=== PATIENT | male | born 1955 | race Caucasian/White ===

== ENCOUNTER 2023-05-23 07:14 | Day surgery (SDC) | payer MEDICARE, OTHER ==
[2023-05-22 11:00] LABS: ALBUMIN 3.7 G/DL (3.4-5.0); ANION GAP 8 (8-16); BASOPHILS # (AUTO) 0.1 X10'3 (0-0.2); BLOOD UREA NITROGEN 13 MG/DL (7-18); BUN/CREATININE RATIO 13.4 (10.0-20.0); CALCIUM 8.4 MG/DL (8.5-10.1); CHLORIDE 107 MMOL/L (99-107); CREATININE 0.97 MG/DL (0.60-1.10); EOSINOPHILS # (AUTO) 0.6 X10'3 (0-0.9); EOSINOPHILS % (AUTO) 8.2 % (0-6); GLUCOSE 118 MG/DL (70-104); HEMATOCRIT 42.9 % (42.0-52.0); HEMOGLOBIN 14.4 g/dl (14.0-17.9); LYMPHOCYTES # (AUTO) 2.2 X10'3 (1.1-4.8); LYMPHOCYTES % (AUTO) 31.9 % (21-51); MEAN CORPUSCULAR HEMOGLOBIN 29.9 PG (27.0-31.0); MEAN CORPUSCULAR HGB CONC 33.6 g/dL (33.0-36.5); MEAN CORPUSCULAR VOLUME 89.1 FL (78-98); MEAN PLATELET VOLUME 9.5 FL (7.4-10.4); MONOCYTES # (AUTO) 0.9 X10'3 (0-0.9); MONOCYTES % (AUTO) 12.3 % (2-12); NEUTROPHILS # (AUTO) 3.2 X10'3 (1.8-7.7); NEUTROPHILS % (AUTO) 45.6 % (42-75); PLATELET COUNT 153 X10'3 (140-440); POTASSIUM 4.6 MMOL/L (3.5-5.1); RED BLOOD COUNT 4.82 X10'6 (4.70-6.10); RED CELL DISTRIBUTION WIDTH 15.5 % (11.5-14.5); SODIUM 143 MMOL/L (135-145); WHITE BLOOD COUNT 6.9 X10'3 (4.5-11.0); eGFR 77 ML/MIN
[2023-05-22 11:01] LABS: INR 1.1 INR; PROTHROMBIN TIME 11.5 SECONDS (9.0-12.0)
[~2023-05-23] VITALS: Ht 185.4 cm; Wt 101.2 kg
[2023-05-23] VITALS (12 sets, daily range): BP systolic 101–153; BP diastolic 59–116; PULSE 59–108; RESP 16–18; TEMP 97.9; O2SAT 95–98
[2023-05-23] MEDS ORDERED: diphenhydrAMINE 25mg capsule PO ONE (07:45)
[2023-05-23] MEDS ORDERED: LORazepam 0.5 MG tablet PO ONE (07:45)
[2023-05-23] MEDS ORDERED: atropine 0.1mg/ml 10ml syringe IV ONE (07:45)
[2023-05-23] MEDS ORDERED: amiodarone 150mg/dext, iso-os 100 ML IV ONE (07:45)
[2023-05-23] MEDS ORDERED: METO-384 PO (07:47)
[2023-05-23] MEDS ORDERED: TIMO5DRO44 (07:47)
[2023-05-23] MEDS ORDERED: FLEC100T35 PO (07:47)
[2023-05-23] MEDS ORDERED: ROSU20TA73 PO (07:47)
[2023-05-23] MEDS ORDERED: APIX5TAB3 PO (07:47)
[2023-05-23] MEDS: normal saline 1000ml 1,000 ML IV SCH (08:19)
[2023-05-23] MEDS: enoxaparin 100mg/ml syringe SUBCUT ONE (08:20)
[2023-05-23] MEDS: MIDAZolam 1mg/ml 10ml vial IV ONE (09:17)
[2023-05-23] MEDS: morphine 10mg/ml inj. IV ONE (09:17)
== END 2023-05-23 10:10 | disposition home or self-care (01) ==
LOC: SSTAY O 07:14
PROVIDERS: ATTEND Internal Medicine Cardiovascular Disease
DX: I48.0 Paroxysmal atrial fibrillation (principal); I10 Essential (primary) hypertension; E78.5 Hyperlipidemia, unspecified; G47.30 Sleep apnea, unspecified; I27.29 Other secondary pulmonary hypertension; I34.0 Nonrheumatic mitral (valve) insufficiency; Z79.899 Other long term (current) drug therapy; Z79.01 Long term (current) use of anticoagulants; Z80.9 Family history of malignant neoplasm, unspecified
CPT/HCPCS: 36415; 80048; 85025; 85610; 92960; 93005; J1650; J2250; J2274; J7030; A4620

== ENCOUNTER 2024-12-10 07:02 | Day surgery (SDC) | payer MEDICARE ==
[2024-12-09 09:57] LABS: MEAN PLATELET VOLUME 9.9 FL (7.4-10.4)
[2024-12-09 09:58] LABS: RED CELL DISTRIBUTION WIDTH 13.8 % (11.5-14.5)
[2024-12-09 10:03] LABS: CREATININE 0.80 MG/DL (0.60-1.10); TOTAL CARBON DIOXIDE 28.2 MMOL/L (24-32); eGFR > 90 ML/MIN
[2024-12-09 10:14] LABS: INR 1.1 INR
[~2024-12-10] VITALS: Ht 182.9 cm; Wt 97.0 kg
[~2024-12-10 07:02] MED LIST: APIX5TAB3 PO; FLEC100T35 PO; METO-384 PO; ROSU20TA98 PO; TIMO5DRO44
[2024-12-10] MEDS ORDERED: morphine 10mg/ml inj. IV ONE (07:20)
[2024-12-10] MEDS ORDERED: atropine 0.1mg/ml 10ml syringe IV ONE (07:20)
[2024-12-10] MEDS ORDERED: normal saline 1000ml 1,000 ML IV SCH (07:20)
[2024-12-10] MEDS ORDERED: MIDAZolam 1mg/ml 10ml vial IV ONE (07:20)
[2024-12-10] MEDS ORDERED: amiodarone 150mg/dext, iso-os 100 ML IV ONE (07:20)
--- NOTE | 2024-12-10 07:27 | ELECTROCARDIOGRAPH REPORT ---
[facility] Test Date: 2024-12-10 Test Time: 07:25:46 Pat Name: WILLIAM STANLEY Department: [facility] Patient ID: [facility]-[id number] Room: Gender: M Qa Lead: kenji : 1955 Requested By: ANNA CHAPMAN Order Number: [id number] Reading MD: Dr. OKSANA Chapman Measurements Intervals [place] Rate: 89 P: 0 [place]: 0 QRS: 54 QRSD: 133 T: 51 QT: 433 QTc: 527 Interpretive Statements Atrial fibrillation Nonspecific intraventricular conduction delay Borderline T abnormalities, anterior leads Electronically Signed On 12-10-2024 19:06:[address] OKSANA Chapman Please click the below link to view image of tracing.
[2024-12-10] MEDS ORDERED: Prevagen PO (07:38)
[2024-12-10] MEDS ORDERED: COLC0.6T72 PO (07:38)
[2024-12-10] MEDS ORDERED: HYDR-3972 PO (07:38)
[2024-12-10 08:01] VITALS: BP 143/95; PULSE 72; RESP 16; TEMP 97; O2SAT 97
[2024-12-10] MEDS ORDERED: atropine 0.1mg/ml 10ml syringe ONE (09:12)
[2024-12-10] MEDS ORDERED: fentaNYL/PF 50MCG/1 ML 2ML syringe ONE (09:12)
[2024-12-10] MEDS ORDERED: midazolam 1 mg/ML 2ml injection ONE ×2 (09:12→09:35)
[2024-12-10] MEDS ORDERED: amiodarone 50MG/ML inj IV ONE (09:12)
[2024-12-10 10:04] VITALS: BP 106/78; PULSE 60; RESP 14; O2SAT 96
--- NOTE | 2024-12-10 10:05 | ELECTROCARDIOGRAPH REPORT ---
[facility] Test Date: 2024-12-10 Test Time: 10:02:56 Pat Name: WILLIAM STANLEY Department: [facility] Patient ID: [id number] Room: Gender: M Vp Strategy: [place] : 1955 Requested By: ANNA CHAPMAN Order Number: [id number] Reading MD: Dr. OKSANA Chapman Measurements Intervals [place] Rate: 59 P: 28 [place]: 233 QRS: 18 QRSD: 116 T: 24 QT: 468 QTc: 464 Interpretive Statements Sinus rhythm Prolonged [place] interval Nonspecific intraventricular conduction delay Electronically Signed On 12-10-2024 19:07:[address] OKSANA Chapman Please click the below link to view image of tracing.
[2024-12-10 10:15] VITALS: BP 105/73; PULSE 59; RESP 14; O2SAT 96
[2024-12-10 10:30] VITALS: BP 100/78; PULSE 59; RESP 14; O2SAT 98
[2024-12-10] MEDS: potassium Cl 20 mEq SR tablet PO ONE (10:32)
--- NOTE | 2024-12-10 13:24 | CARDIOLOGY REPORT ---
DATE OF SERVICE: 12/10/2024 DICTATING PHYSICIAN: OKSANA Plaza MD CARDIAC CATHETERIZATION INDICATION: The patient is a 69-year-old male with a history of hypertension, hyperlipidemia, sleep apnea, and paroxysmal atrial fibrillation. His AFib history goes back to 12/2022 when he presented to [facility] with AFib with RVR. Subsequently, he was started on Eliquis and converted to normal sinus rhythm. He did well until 10/2024 when he had a recurrence of AFib. He is also on flecainide increased to 150 mg p.o. q.a.m. and 50 mg q.p.m. After discussing risks, benefits, alternative options, the patient underwent electrical cardioversion. Risks, benefits, and alternative options were discussed. Informed consent obtained. PROCEDURE: Anterior and posterior patch was used. Using biphasic electrical energy 200 joules x 1, converted to normal sinus rhythm, remained in normal sinus rhythm. IMPRESSION: A 69-year-old male with paroxysmal AFib, which was persistent, converted to normal sinus rhythm. RECOMMENDATIONS: Continue Eliquis, flecainide, and metoprolol 50 mg p.o. b.i.d. Recommend diet, weight loss, and exercise program and adequate treatment of his underlying sleep apnea. The patient has not been evaluated, was recommended to have the sleep apnea treated. OKSANA Plaza MD TID: [id number] RECEIPT: [id number] VIOLET/ERICA/YAHAIRA cc: Richardson Moore MD
== END 2024-12-10 11:00 | disposition home or self-care (01) ==
LOC: SSTAY O 07:02
PROVIDERS: ATTEND Internal Medicine Cardiovascular Disease
DX: I48.0 Paroxysmal atrial fibrillation (principal); R94.31 Abnormal electrocardiogram [ECG] [EKG]; I10 Essential (primary) hypertension; E78.5 Hyperlipidemia, unspecified; G47.30 Sleep apnea, unspecified; Z79.01 Long term (current) use of anticoagulants; Z79.899 Other long term (current) drug therapy
CPT/HCPCS: 36415; 80048; 85025; 85610; 92960; 93005; 99152; J0282; J0461; J2250; J3010; J7030